=== PATIENT | male | born 1995 | race Caucasian/White ===

== ENCOUNTER → 2018-11-03 | Outpatient (CLI) | payer OTHER | LOC: COL.RAD 10:09 | DX: E04.2 Nontoxic multinodular goiter (principal); R59.0 Localized enlarged lymph nodes ==

== ENCOUNTER → 2018-11-17 | Outpatient (CLI) | payer OTHER ==
[~2018-11-17] VITALS: Ht 182.9 cm; Wt 81.3 kg
[~2018-11-17] MED LIST: PROAIR HFA0.09 MG/AC IH; SINGULAIR 110 MG/TAB PO
[2018-11-17 13:36] VITALS: BP 157/87; PULSE 107
[2018-11-17 14:15] VITALS: BP 126/79; PULSE 83
== END ==
LOC: COL.RAD 11-16 09:45
DX: E04.2 Nontoxic multinodular goiter (principal)